=== PATIENT | female | born 1980 | race Caucasian/White ===

== ENCOUNTER 2018-11-21 19:44 | Emergency (ER) | payer OTHER ==
[2018-11-21 19:54] VITALS: BP 102/82
--- NOTE | 2018-11-21 20:48 | EDPHY ---
General - Diagnostics EKG: I reviewed patient's EKG. See Mobile Media Content system for interpretation ( Reviewed by Dr Wagner) Time Seen by Provider: 11/21/18 20:40 Narrative: CLINICAL IMPRESSION: Chest wall pain ASSESSMENT/PLAN: Patient is a 38-year-old female with no significant medical history who presents to the emergency department with complaints of mid chest pain, reproducible. Patient is afebrile and not toxic appearing, she was in no acute distress. The patient was placed on personnel monitor and and ECG was immediately obtained- revealed normal sinus rhythm without evidence of ischemia; reviewed by Dr. Wagner and myself. POC troponin undetectable. CBC with no evidence of leukocytosis or significant anemia. BMP with no significant metabolic abnormality or evidence of acute kidney injury. Hepatic panel and Lipase normal. Heart score 0, PERC negative- low suspicion for PE. Patient with recent increased activity and yoga, physical exam with reproducible anterior chest wall pain. Her symptoms are most consistent with musculoskeletal etiology and is very atypical for angina or acute coronary syndrome. Chest x- ray with no acute findings, I do not suspect other life-threatening etiologies to include aortic dissection, pneumothorax, pneumonia, Leah-Olmos tear, boerhaave syndrome, pancreatitis, mediastinitis, myocarditis, pericarditis, or additional intra-abdominal/intrathoracic process. On repeat examination the patient reports that she has no pain. She is very reassured by findings today as they recently lost her [id number] to CAD. Strict return precautions discussed- she will return for any symptom of concern, particularly chest pain, shortness of breath, rapid or irregular heartbeat, unusual fatigue, cough, coughing up blood or discolored sputum or for any other new, worsening, or worrisome symptoms. Patient verbalizes understanding and she is in agreement with plan. DIFFERENTIAL DX: Chest pain including but not limited to myocardial ischemia, pulmonary embolus, chest wall pain, pleural inflammation and pulmonary infectious causes. ED COURSE: 2047: Case discussed with Dr. Wagner. 11/23/2028: Dr. Wagner evaluating patient at this time. 12 lead EKG: Indication: Chest pain Rhythm: Normal sinus rhythm [place]: Normal Intervals: Normal QRS: Normal ST segments: Normal INTERPRETATION: Normal EKG The 12 lead EKG was interpreted by myself and Dr. Wagner CHIEF COMPLAINT: Anterior chest pain HPI: Patient is a 38-year-old female with no significant medical history who presents to the emergency department with sudden onset sharp pain in the middle of her chest which occurred at 5:30 p.m.. Patient reports she was standing in the kitchen, had a sudden onset of very sharp midsternal pain, it was constant and lasted for about an hour. Patient reports feeling mildly lightheaded when the pain was most intense, no near-syncope or syncope. There was no radiation of pain into her jaw or arm, there was no associated diaphoresis or nausea. She has no known cardiovascular disease, no early family history of coronary artery disease. Patient has not been very active until this week, she has been into yoga classes and feels like this might be contributory. No recent surgery or trauma, she is not on any hormone replacement therapy. She denies any fever , chills, recent cough, chest congestion or abdominal pain. She does have a history of reflux in the past, this does not feel similar. She denies any urinary symptoms to include dysuria, hematuria or frequency. Bowel movements have been regular and normal. PMH: Vasovagal syncope Family History: Denies early cardiac family history Social History: Denies cigarettes, illicit drug use or alcohol REVIEW OF SYSTEMS: All other systems negative Constitutional: No fever, no chills, appetite change. Eyes: No discharge, vision change ENT: No sore throat, congestion, ear pain. Cardiovascular: Chest pain. No no palpitations. Respiratory: No cough, no shortness of breath. Gastrointestinal: No abdominal pain, no vomiting, diarrhea. Genitourinary: No hematuria, dysuria, flank pain, pelvic pain Musculoskeletal: No back pain, joint swelling, joint pain, myalgias. Skin: No rashes, color change. Neurological: No headache, dizziness, weakness. PHYSICAL EXAM: General Appearance: Patient is well-appearing and in no acute distress HENT: Normocephalic, atraumatic. Bilateral external ears are normal. Bilateral tympanic membranes are normal with pearly power reflex. Nares are clear, mucosa is pink. Oropharynx is clear, uvula is midline. There is no tonsillar enlargement or exudate. The dentition is normal. Eyes: PERRLA, no nystagmus, swelling, discharge, pain or photosensitivity. Conjunctiva pink, no pallor or injection Neck: Supple, nontender, no lymphadenopathy, no midline pain, FROM, no meningismus. Respiratory: There are no retractions, lungs are clear to auscultation. Cardiac: Regular rate and rhythm, no murmurs or gallops. Chest: Patient with reproducible midsternal and left anterior chest wall pain to palpation. There is no obvious deformity, ecchymosis or abrasion. Gastrointestinal: Abdomen is soft, nontender, bowel sounds normal, no masses/ hernia, no rigidity, guarding or focal peritoneal findings. Neurological: Alert and oriented x 3, CN 2-12 grossly intact, normal gait no ataxia, DTR's intact, normal sensation and strength Skin: Warm, dry, no rashes, no nodules on palpation. Musculoskeletal: Extremities are symmetrical, full range of motion, no tenderness, deformity, swelling, or erythema. Psychiatric: Patient is oriented X 3, there is no agitation. MEDICAL DECISION MAKING: Patient was seen independently. Secondary supervising physician at time of evaluation was Dr. Wagner. Diagnosis: Chest wall pain. New, requires workup Summary: See Assessment and Plan for summary of ED visit Clinical lab tests: ordered / reviewed. Independent visualization of images, tracing, or specimens: Yes. Decision to obtain medical records or history from someone other than the patient: Yes, Review / Summarize previous medical records: No Discussed patient with another provider: Yes, Dr. Wagner Patient Progress: Stable, discharge. (Colleen Hardy) Medical Decision Making: PHYSICIAN DOCUMENTATION: The patient was evaluated and managed by the Physician Resident Care Spec and myself. I have reviewed the chart and agree with the findings and plan of care as documented. In addition, I examined the patient myself at 2130. History confirmed as sudden onset nontraumatic sharp chest pain, with not have risk factors. Physical findings as follows: Regular rate rhythm without murmur. Low HEART score, PERC negative, I think that acute medical or surgical emergent condition is unlikely in this patient. EKG personally reviewed. I am the secondary supervising physician. (Elmer Wagner) - Diagnostics Imaging Results: Imaging Impressions Chest X-Ray 11/21/18 20:45 Impression: No acute findings in the chest. - Objective Vital Signs: Initial Vital Signs Temperature (C) 36.7 C 11/21/18 19:52 Heart Rate 82 11/21/18 19:52 Respiratory Rate 18 11/21/18 19:52 Blood Pressure 102/82 H 11/21/18 19:52 O2 Sat (%) 98 11/21/18 19:52 O2 Delivery Mode Room Air Allergies/Adverse Reactions: No Known Allergies Allergy (Unverified 01/23/14 16:19) Home Medications: Medication Instructions Recorded NK [No Known Home Meds] 11/21/18 Laboratory Results: Laboratory Results 11/21/18 20:10 11/21/18 20:10 11/21/18 11/21/18 11/21/18 20:16 20:10 20:10 WBC 6.55 10^3/uL 10^3/uL (3.80-9.50) RBC 4.62 10^6/uL 10^6/uL (4.18-5.33) Hgb 13.5 g/dL g/dL (12.6-16.3) Hct 39.0 % % (38.0-47.0) MCV 84.4 fL fL (81.5-99.8) MCH 29.2 pg pg (27.9-34.1) MCHC 34.6 g/dL g/dL (32.4-36.7) RDW 12.0 % % (11.5-15.2) Plt Count 211 10^3/uL 10^3/uL (150-400) MPV 11.2 fL fL (8.7-11.7) Neut % (Auto) 63.2 % % (39.3-74.2) Lymph % (Auto) 28.7 % % (15.0-45.0) [place] % (Auto) 5.5 % % (4.5-13.0) Eos % (Auto) 1.8 % % (0.6-7.6) Baso % (Auto) 0.6 % % (0.3-1.7) Nucleat RBC Rel Count 0.0 % % (0.0-0.2) Absolute Neuts (auto) 4.14 10^3/uL 10^3/uL (1.70-6.50) Absolute Lymphs (auto) 1.88 10^3/uL 10^3/uL (1.00-3.00) Absolute Monos (auto) 0.36 10^3/uL 10^3/uL (0.30-0.80) Absolute Eos (auto) 0.12 10^3/uL 10^3/uL (0.03-0.40) Absolute Basos (auto) 0.04 10^3/uL 10^3/uL (0.02-0.10) Absolute Nucleated RBC 0.00 10^3/uL 10^3/uL (0-0.01) Immature Gran % 0.2 % % (0.0-1.1) Immature Gran # 0.01 10^3/uL 10^3/uL (0.00-0.10) Sodium 136 mEq/L mEq/L (135-145) Potassium 4.1 mEq/L mEq/L (3.5-5.2) Chloride 108 mEq/L mEq/L (97-110) Carbon Dioxide 22 mEq/l mEq/l (22-31) Anion Gap 6 mEq/L mEq/L (6-14) BUN 13 mg/dL mg/dL (7-23) Creatinine 0.6 mg/dL mg/dL (0.6-1.0) Estimated GFR > 60 Glucose 113 mg/dL H mg/dL (70-100) Calcium 8.6 mg/dL mg/dL (8.5-10.4) Total Bilirubin 0.2 mg/dL mg/dL (0.1-1.4) AST 19 IU/L IU/L (14-46) ALT 23 IU/L IU/L (9-52) Alkaline Phosphatase 71 IU/L IU/L (38-126) POC Troponin I 0.00 ng/mL ng/mL (0.00-0.08) Total Protein 6.8 g/dL g/dL (6.3-8.2) Albumin 4.1 g/dL g/dL (3.5-5.0) Lipase 229 IU/L IU/L (23-300) Point of Care Test Results: Chemistry 11/21/18 20:16 POC Troponin I 0.00 ng/mL ng/mL (0.00-0.08) Departure - Departure Disposition: Home, Routine, Self-Care Clinical Impression: Chest wall pain Condition: Good Instructions: Chest Wall Pain (ED) Additional Instructions: DISCHARGE INSTRUCTIONS FROM YOUR DOCTOR Thank you for visiting our emergency department today. Please keep in mind that discharge from the emergency department does not mean that there is nothing wrong - it simply means that we have not identified an emergency condition that requires further evaluation or treatment in the hospital. You should always plan to follow up with primary care for re-evaluation of your condition in the next 2-3 days. For pain control: You may take Tylenol, I recommend 500-1000 mg every 6-8 hours as needed. Take with food and a full glass of water. Stop taking if this is upsetting her stomach. Do not exceed 4000 mg in a 24 hr period. You may apply ice or heat, whichever feels better to you. People present with illnesses and injuries in different ways, and it is always possible that we have missed something. You may always return for re-evaluation if symptoms worsen or if they are not improving or if you develop new/different symptoms. Again, thank you for choosing our emergency department. We hope that you feel better. Referrals: Gabbi Moran MD [Primary Care Provider] - 2-3 days without fail
[2018-11-21 20:50] LABS: PLATELET COUNT 211 10^3/uL (150-400)
--- NOTE | 2018-11-21 21:02 | CPEKG ---
Test Reason : OPEN Blood Pressure : / mmHG Vent. Rate : 075 BPM Atrial Rate : 075 BPM P-R Int : 115 ms QRS Dur : 082 ms QT Int : 372 ms P-R-T Axes : 059 074 050 degrees QTc Int : 416 ms Sinus rhythm Confirmed by Elmer Wagner ([id number]) on 11/21/2018 9:01:31 PM Referred By: Confirmed By:Elmer Wagner
== END 2018-11-21 21:44 | disposition home or self-care (01) ==
DX: R07.89 Other chest pain (principal)
CPT/HCPCS: 84484-ER

== ENCOUNTER 2019-04-28 02:00 | Emergency (ER) | payer OTHER | END 2019-04-28 03:20 | disposition home or self-care (01) ==